=== PATIENT | female | born 1970 | race Caucasian/White ===

== ENCOUNTER → 2017-09-16 | Outpatient (CLI) | payer BC ==
--- NOTE | 2017-09-16 11:21 | MM ---
Reason for exam: additional evaluation requested from prior study. Last mammogram was performed 1 year and 7 months ago. History: Family history of breast cancer in maternal grandmother. Benign MG stereo VAD BX RT of the right breast, March 12, 2016. Benign excisional biopsy of the right breast, September 29, 1998. Cyst aspiration of the right breast. Took hormonal contraceptives for 5 years. Physical Findings: Nurse did not find any significant physical abnormalities on exam. MG 3D Diag Mammo W/Cad [facility] Bilateral CC and MLO view(s) were taken. Prior study comparison: February 20, 2016, right breast MG 3d diag mammo w/cad RT. June 27, 2015, bilateral MG 3d diag mammo w/cad [facility]. The breast tissue is heterogeneously dense. This may lower the sensitivity of mammography. Previous mammotome biopsy in the right breast. No significant new findings when compared with previous films. These results were verbally communicated with the patient and result sheet given to the patient on 09/16/17. ASSESSMENT: Negative, BI-RAD 1 RECOMMENDATION: Routine screening mammogram of both breasts in 1 year.
--- NOTE | 2017-09-16 12:16 | US ---
EXAMINATION TYPE: US pelvic complete DATE OF EXAM: 09/16/2017 COMPARISON: NONE CLINICAL HISTORY: 47-year-old female R10.2 pelvic pain. With hysterectomy 8 years ago TECHNIQUE: Transabdominal sonographic images of the pelvis were acquired. Date of LMP: 8 yrs ago Findings: Uterus: Surgically absent Right Ovary: 2.7 x 2.1 x 2.2 cm, within normal limits. Left Ovary: 2.5 x 2.6 x 2.2 cm, a couple prominent follicles are present measuring up to 1.8 cm. No evident adnexal abnormality or cul-de-sac free fluid. IMPRESSION: 1. Status post hysterectomy. 2. No pelvic free fluid. A couple small follicles in the left ovary measure up to 1.8 cm.
== END | disposition home or self-care (01) ==
LOC: RADMAMWWP 10:31
PROVIDERS: ATTEND Family Medicine
DX: R92.8 Other abnormal and inconclusive findings on diagnostic imaging of breast (principal); R10.2 Pelvic and perineal pain; R14.0 Abdominal distension (gaseous); Z90.710 Acquired absence of both cervix and uterus
CPT/HCPCS: 76856; 77062; 77066

== ENCOUNTER → 2018-10-10 | Outpatient (CLI) | payer BC ==
--- NOTE | 2018-10-13 13:27 | MM ---
Reason for exam: screening (asymptomatic). Last mammogram was performed 1 year and 1 month ago. History: Family history of breast cancer in maternal grandmother. Benign MG stereo VAD BX RT of the right breast, March 12, 2016. Benign excisional biopsy of the right breast, September 29, 1998. Cyst aspiration of the right breast. Took hormonal contraceptives for 5 years. Physical Findings: A clinical breast exam by your physician is recommended on an annual basis and results should be correlated with mammographic findings. MG 3D Screening Mammo W/Cad Bilateral CC and MLO view(s) were taken. Prior study comparison: September 16, 2017, bilateral MG 3d diag mammo w/cad [facility]. February 20, 2016, right breast MG 3d diag mammo w/cad RT. Previous mammotome biopsy in the right breast. No significant changes when compared with prior studies. ASSESSMENT: Benign, BI-RAD 2 RECOMMENDATION: Routine screening mammogram of both breasts in 1 year.
== END | disposition home or self-care (01) ==
LOC: RADMAMWWP 09:37
PROVIDERS: ATTEND Family Medicine
DX: Z12.31 Encounter for screening mammogram for malignant neoplasm of breast (principal)
CPT/HCPCS: 77063; 77067

== ENCOUNTER → 2020-02-10 | Outpatient (CLI) | payer BC ==
--- NOTE | 2020-02-11 11:24 | MM ---
Reason for exam: screening (asymptomatic). Last mammogram was performed 1 year and 4 months ago. History: Family history of breast cancer in maternal grandmother. Benign MG stereo VAD BX RT of the right breast, March 12, 2016. Benign excisional biopsy of the right breast, September 29, 1998. Cyst aspiration of the right breast. Took hormonal contraceptives for 5 years. Physical Findings: A clinical breast exam by your physician is recommended on an annual basis and results should be correlated with mammographic findings. MG 3D Screening Mammo W/Cad Bilateral CC and MLO view(s) were taken. Prior study comparison: October 10, 2018, bilateral MG 3d screening mammo w/cad. September 16, 2017, bilateral MG 3d diag mammo w/cad [facility]. The breast tissue is heterogeneously dense. This may lower the sensitivity of mammography. No significant changes when compared with prior studies. ASSESSMENT: Benign, BI-RAD 2 RECOMMENDATION: Routine screening mammogram of both breasts in 1 year.
== END | disposition home or self-care (01) ==
LOC: RADMAMWWP 11:05
PROVIDERS: ATTEND Family Medicine
DX: Z12.31 Encounter for screening mammogram for malignant neoplasm of breast (principal)
CPT/HCPCS: 77063; 77067

== ENCOUNTER → 2021-10-05 | Outpatient (CLI) | payer BC ==
--- NOTE | 2021-10-05 09:43 | US ---
EXAMINATION TYPE: US pelvis complete transvag DATE OF EXAM: 10/05/2021 COMPARISON: US 2018 CLINICAL HISTORY: R10.2 PELVIC PAIN,R14.0 BLOATING. Bloating, history of partial hysterectomy 12 year s ago TECHNIQUE: . Transvaginal exam only Date of LMP: 12 years ago EXAM MEASUREMENTS: Right Ovary: 2.3 x 1.0 x 1.6 cm Left Ovary: 2.6 x 1.6 x 1.9 cm 1. Uterus: surgically absent 2. Endometrium: surgically absent 3. Right Ovary: wnl 4. Left Ovary: 1.5cm cystic area 5. Bilateral Adnexa: wnl 6. Posterior cul-de-sac: wnl IMPRESSION: Postoperative pelvis. 1.5 cm cyst left ovary is nonspecific.
--- NOTE | 2021-10-06 09:09 | MM ---
Reason for Exam: Screening (asymptomatic). Last mammogram was performed 1 year(s) and 8 month(s) ago. Patient History: Menarche at age 14. First Full-Term at age 16. Hysterectomy at age 39. Postmenopausal. Patient used Hormonal Contraceptives for 5 years. Cyst Aspiration on the Right side. 03/12/2016, Benign Core Biopsy on the right side. 09/29/1998, Benign Excisional Biopsy on the right side. Maternal grandmother had breast cancer. Risk Values: Elida 5 year model risk: 1.0%. NCI Lifetime model risk: 8.5%. Prior Study Comparison: 09/16/2017 Bilateral Diagnostic Mammogram, [facility]. 10/10/2018 Bilateral Screening Mammogram, [facility]. 02/10/2020 Bilateral Screening Mammogram, [facility]. Tissue Density: The breast tissue is heterogeneously dense. This may lower the sensitivity of mammography. Findings: Analyzed By CAD. Mammotome biopsy clip right breast is redemonstrated. Well-defined small nodules towards the left axilla favor benign lymph nodes. There is no suspicious group of microcalcifications or new suspicious mass in either breast. Overall Assessment: Benign, BI-RAD 2 Management: Screening Mammogram of both breasts in 1 year. A clinical breast exam by your physician is recommended on an annual basis and results should be correlated with mammographic findings. Electronically signed and approved by: Herrera Carcamo M.D.
== END | disposition home or self-care (01) ==
LOC: RADUSWWP 08:46
PROVIDERS: ATTEND Family Medicine
DX: Z12.31 Encounter for screening mammogram for malignant neoplasm of breast (principal); N83.202 Unspecified ovarian cyst, left side
CPT/HCPCS: 76830; 77063; 77067

== ENCOUNTER → 2021-12-25 | Outpatient (CLI) | payer BC ==
--- NOTE | 2021-12-25 12:31 | FL ---
EXAMINATION TYPE: FL barium swallow DATE OF EXAM: 12/25/2021 CLINICAL INDICATION: 51-year-old female R1 3.10, dysphagia, food sticking in throat. COMPARISON: No priors available for comparison Total Fluoroscopy Time: 2 minutes 30 seconds 60 images obtained. FINDINGS: The swallowing mechanism is normal. There is mild anterior endplate cervical spondylosis contributing to mild focal impressions onto the back wall of the hypopharynx and cervical esophagus. However, thi s is not contributing obstruction. No significant cricopharyngeus muscle hypertrophy or diverticulum is seen. The thoracic portion has a normal course and caliber. There are mild blunted secondary stripping wave s and the patient is prone/supine. The mucosa is normal and no persistent filling defect is encountered. Note a tiny sliding hiatal hernia. We were unable to elicit any gastroesophageal reflux during the co urse of the exam with Valsalva or positional maneuvers IMPRESSION: 1. Mild anterior endplate spurring in the cervical spine causing mild impressions onto the back wall of the cervical esophagus. This does not contribute to any obstruction. 2. Very tiny sliding hiatal hernia. Unable to elicit any gastroesophageal reflux during the course of the exam. 3. Mild esophageal dysmotility with some blunted secondary stripping waves.
== END | disposition home or self-care (01) ==
LOC: RADUSWWP 10:54
PROVIDERS: ATTEND Surgery Plastic and Reconstructive Surgery
DX: K44.9 Diaphragmatic hernia without obstruction or gangrene (principal); K21.9 Gastro-esophageal reflux disease without esophagitis; K22.4 Dyskinesia of esophagus
CPT/HCPCS: 74220

== ENCOUNTER 2022-02-14 09:32 | Day surgery (SDC) | payer BC ==
[2022-02-09 12:27] VITALS: BMI 28.1
[~2022-02-14 09:32] MED LIST: LACTATED RINGERS 1,000 ML IV SCH; LIDOCAINE 1% (10MG/ML) FOR IV START INTRADERMA PRN
[2022-02-14] MEDS ORDERED: LACTATED RINGERS 1,000 ML IV ONE (09:53)
[2022-02-14 09:56] VITALS: TEMP 97.8
[2022-02-14] MEDS ORDERED: PROPOFOL 10 MG/ML 20 ML VIAL IV ONE (11:18)
[2022-02-14] MEDS ORDERED: LIDOCAINE 2% INJ 20 MG/ML (2 ML VIAL) ONE (11:18)
--- NOTE | 2022-02-14 11:34 | P.GSHP ---
History of Present Illness H&P Date: 02/14/22 CHIEF COMPLAINT: GERD HISTORY OF PRESENT ILLNESS: The patient is a 51-year-old female who presents reports gastroesophageal reflux disease. Upper endoscopy was offered for further evaluation and management. PAST MEDICAL HISTORY: Please see list. PAST SURGICAL HISTORY: Please see list. MEDICATIONS: Please see list. ALLERGIES: Please see list. SOCIAL HISTORY: No illicit drug use FAMILY HISTORY: No reports of Crohn disease or ulcerative colitis. REVIEW OF ORGAN SYSTEMS: CONSTITUTIONAL: No reports of fevers or chills. GI: Denies any blood in stools or constipation. PHYSICAL EXAM: VITAL SIGNS: Stable GENERAL: Well-developed and pleasant in no acute distress. HEENT: No scleral icterus. Extraocular movements grossly intact. Moist buccal mucosa. NECK: Supple without lymphadenopathy. CHEST: Unlabored respirations. Equal bilateral excursions. CARDIOVASCULAR: Regular rate and rhythm. Distal 2+ pulses. ABDOMEN: Soft, nondistended. MUSCULOSKELETAL: No clubbing, cyanosis, or edema. ASSESSMENT: 1. Gastroesophageal reflux disease PLAN: 1. Recommend proceeding with an upper endoscopy Past Medical History Past Medical History: GERD/Reflux Additional Past Medical History / Comment(s): FLUID RETENTION. FEELS LIKE FOOD IS NOT GOING DOWN. HIATAL HERNIA. SEASONAL ALLERGIES History of Any Multi-Drug Resistant Organisms: None Reported Past Surgical History: Breast Surgery, Cholecystectomy, Hysterectomy, Tonsillectomy, Tubal Ligation Additional Past Surgical History / Comment(s): RT BREAST LUMPECTOMY X 2 Past Anesthesia/Blood Transfusion Reactions: Motion Sickness, Postoperative Nausea & Vomiting (PONV) Smoking Status: Current every day smoker - Past Family History Mother Family Medical History: No Reported History Medications and Allergies Home Medications Medication Instructions Recorded Confirmed Type hydroCHLOROthiazide [Hydrodiuril] 25 mg PO DAILY 08/11/14 02/09/22 History Montelukast [Singulair] 10 mg PO DAILY 02/09/22 02/09/22 History Omeprazole 40 mg PO DAILY 02/09/22 02/09/22 History Allergies Allergy/AdvReac Type Severity Reaction Status Date / Time shellfish derived [Shellfish] Allergy ITCHING/HIV Verified 02/09/22 12:18 ES Surgical - Exam Vital Signs Temp Pulse Resp BP Pulse Ox 97.8 F 65 18 123/73 100 02/14/22 09:55 02/14/22 09:55 02/14/22 09:55 02/14/22 09:55 02/14/22 09:55
--- NOTE | 2022-02-14 11:39 | P.PCN ---
Date of Procedure: 02/14/22 Description of Procedure: PREOPERATIVE DIAGNOSIS: Gastroesophageal reflux disease. Dysphagia Diaphragmatic hiatal hernia POSTOPERATIVE DIAGNOSIS: Gastroesophageal reflux disease. Dysphagia OPERATION: Esophagogastroduodenoscopy with biopsies along antrum and duodenum SURGEON: Sepideh Ga MD ANESTHESIA: MAC. INDICATIONS: The patient is a 51-year-old female who presents with reflux disease. Benefits and risks of the procedure were described. Informed consent was obtained. DESCRIPTION: The patient was brought into the endoscopy suite and laid in the left lateral decubitus position. An Olympus gastroscope was passed along the posterior oropharynx down to the distal esophagus where the squamocolumnar junction was encountered at 38 cm from the incisors. The stomach was entered and no bile reflux was found. Additional findings are listed below. Biopsies with cold forceps were obtained of the antrum. The first through third portion of the duodenum was examined. Retroflexion of the scope confirmed Hill grade 2 lower esophageal valve. The squamocolumnar junction demonstrated LA grade B erosive esophagitis. The stomach was desufflated. The patient tolerated the procedure well. FINDINGS: Squamocolumnar junction 38 cm from the incisors. Diaphragmatic hiatus at 38 cm. Hill grade 2 lower esophageal valve. LA grade B erosive esophagitis. Biopsies of duodenum Chronic gastritis RECOMMENDATIONS: Upper endoscopy as needed. Plan - Discharge Summary Discharge Rx Participant: No New Discharge Prescriptions: Continue hydroCHLOROthiazide [Hydrodiuril] 25 mg PO DAILY Montelukast [Singulair] 10 mg PO DAILY Omeprazole 40 mg PO DAILY Discharge Medication List hydroCHLOROthiazide [Hydrodiuril] 25 mg PO DAILY 08/11/14 [History] Montelukast [Singulair] 10 mg PO DAILY 02/09/22 [History] Omeprazole 40 mg PO DAILY 02/09/22 [History] Follow up Appointment(s)/Referral(s): Sepideh Ga MD [STAFF PHYSICIAN] - 02/27/22 Patient Instructions/Handouts: Upper Endoscopy (DC) Discharge Disposition: HOME SELF-CARE
[2022-02-14 11:43] VITALS: RESP 16
[2022-02-14 11:52] VITALS: BP 118/76; PULSE 67
== END 2022-02-14 12:45 | disposition home or self-care (01) ==
LOC: ORWHC2ENDO 09:32
PROVIDERS: ATTEND Surgery Plastic and Reconstructive Surgery
DX: K21.00 Gastro-esophageal reflux disease with esophagitis, without bleeding (principal); K29.50 Unspecified chronic gastritis without bleeding; K44.9 Diaphragmatic hernia without obstruction or gangrene; F17.200 Nicotine dependence, unspecified, uncomplicated; Z90.49 Acquired absence of other specified parts of digestive tract; Z90.410 Acquired total absence of pancreas; Z90.89 Acquired absence of other organs; Z98.51 Tubal ligation status; Z79.899 Other long term (current) drug therapy; Z91.013 Allergy to seafood
CPT/HCPCS: 88305; 43239; J2704; J2001

== ENCOUNTER → 2023-01-29 | Outpatient (CLI) | payer BC ==
--- NOTE | 2023-01-30 07:33 | MM ---
Reason for Exam: Screening (asymptomatic). Last mammogram was performed 1 year(s) and 3 month(s) ago. Patient History: Menarche at age 14. First Full-Term at age 16. Hysterectomy at age 39. Postmenopausal. Patient used Hormonal Contraceptives for 5 years. Cyst Aspiration on the Right side. 03/12/2016, Benign Core Biopsy on the right side. 09/29/1998, Benign Excisional Biopsy on the right side. Maternal grandmother had breast cancer. Risk Values: Elida 5 year model risk: 1.1%. NCI Lifetime model risk: 8.4%. Prior Study Comparison: 10/10/2018 Bilateral Screening Mammogram, [facility]. 02/10/2020 Bilateral Screening Mammogram, [facility]. 10/05/2021 Bilateral MG 3D screening mammo w/cad, [facility]. Tissue Density: The breast tissue is heterogeneously dense. This may lower the sensitivity of mammography. Findings: Analyzed By CAD. There is no suspicious group of microcalcifications or new suspicious mass in either breast. Biopsy clip within the right breast. Chronic nodularity within the left breast. Stable benign calcifications. Overall Assessment: Benign, BI-RAD 2 Management: Screening Mammogram of both breasts in 1 year. A clinical breast exam by your physician is recommended on an annual basis and results should be correlated with mammographic findings. Note on Elida scores and lifetime risk: 1. A Elida score greater than 3% is considered moderate risk. If this is the case, consider specialist referral to assess eligibility for a risk reducing agent. If overall lifetime risk for the development of breast cancer is 20% or higher, the patient may qualify for future screening with alternating mammogram and breast MRI. Electronically signed and approved by: Mann Tee D.O.
== END | disposition home or self-care (01) ==
LOC: RADMAMWWP 07:56
PROVIDERS: ATTEND Family Medicine
DX: Z12.31 Encounter for screening mammogram for malignant neoplasm of breast (principal); Z78.0 Asymptomatic menopausal state; Z80.3 Family history of malignant neoplasm of breast
CPT/HCPCS: 77063; 77067

== ENCOUNTER → 2023-12-04 | Outpatient (CLI) | payer BC ==
--- NOTE | 2023-12-04 11:39 | MM ---
Reason for Exam: Clinical finding. Last screening mammogram was performed 11 month(s) ago. Indicated Problems: Lump or thickening of the left side for 1 Year(s). Patient History: Menarche at age 14. First Full-Term at age 16. Hysterectomy at age 39. Postmenopausal. Patient used Hormonal Contraceptives for 5 years. Cyst Aspiration on the Right side. 03/12/2016, Benign Core Biopsy on the right side. 09/29/1998, Benign Excisional Biopsy on the right side. Maternal grandmother had breast cancer. Mother had breast cancer, age 73. Risk Values: Elida 5 year model risk: 2.9%. NCI Lifetime model risk: 19.9%. Tissue Density: The breasts are heterogeneously dense, which may obscure small masses. Findings: Analyzed By CAD. Right breast biopsy clip. No finding to correlate with palpable abnormality. Overall Assessment: Incomplete: need additional imaging evaluation, BI-RAD 0 Management: Diagnostic Breast Ultrasound of the left breast. Results were given to the patient verbally at the time of exam. Patient should continue monthly self-breast exams. A clinical breast exam by your physician is recommended on an annual basis. This exam should not preclude additional follow-up of suspicious palpable abnormalities. Note on Elida scores and lifetime risk: 1. A Elida score greater than 3% is considered moderate risk. If this is the case, consider specialist referral to assess eligibility for a risk reducing agent. 2. If overall lifetime risk for the development of breast cancer is 20% or higher, the patient may qualify for future screening with alternating mammogram and breast MRI. Electronically signed and approved by: Stan Mendez DO
--- NOTE | 2023-12-04 12:15 | USB ---
Reason for Exam: Clinical finding. Patient History: Menarche at age 14. First Full-Term at age 16. Hysterectomy at age 39. Postmenopausal. Patient used Hormonal Contraceptives for 5 years. Cyst Aspiration on the Right side. 03/12/2016, Benign Core Biopsy on the right side. 09/29/1998, Benign Excisional Biopsy on the right side. Maternal grandmother had breast cancer. Mother had breast cancer, age 73. Risk Values: Elida 5 year model risk: 2.9%. NCI Lifetime model risk: 19.9%. Technique: Method: Targeted. Doppler: Color. Patient Position: Supine. Prior Study Comparison: 02/10/2020 Bilateral Screening Mammogram, [facility]. 10/05/2021 Bilateral MG 3D screening mammo w/cad, [facility]. 01/29/2023 Bilateral MG 3D screening mammo w/cad, [facility]. Findings: The area of palpable concern of the left breast, the axilla of the left breast and the retroareolar of the left breast were scanned. Technique utilized:US breast limited LT Image; Ultrasound imaging of: Area of concern, retroareolar region and axilla. No evidence for organizing fluid collection or mass. Hyperechoic lesions within the area of concern at 11:00 a red 11 cm from nipple measuring 17 x 9 m and another measuring 6 mm . Findings represent lipomas. Short-term follow-up recommended. Overall Assessment: Probably benign, BI-RAD 3 Management: Diagnostic Breast Ultrasound of the left breast in 3 months. A clinical breast exam by your physician is recommended on an annual basis and results should be correlated with mammographic findings. This exam should not preclude additional follow-up of suspicious palpable abnormalities. Results were given to the patient verbally at the time of exam. Electronically signed and approved by: Stan Mendez DO
== END | disposition home or self-care (01) ==
LOC: RADMAMWWP 10:49
PROVIDERS: ATTEND Obstetrics & Gynecology
DX: N63.20 Unspecified lump in the left breast, unspecified quadrant (principal); Z78.0 Asymptomatic menopausal state; Z80.3 Family history of malignant neoplasm of breast; R92.333 Mammographic heterogeneous density, bilateral breasts
CPT/HCPCS: 77062; 77066

== ENCOUNTER → 2024-04-13 | Outpatient (CLI) | payer BC ==
--- NOTE | 2024-04-13 11:00 | USB ---
Reason for Exam: Follow-up at short interval from prior study. Patient History: Menarche at age 14. First Full-Term at age 16. Hysterectomy at age 39. Postmenopausal. Patient used Hormonal Contraceptives for 5 years. Cyst Aspiration on the Right side. 03/12/2016, Benign Core Biopsy on the right side. 09/29/1998, Benign Excisional Biopsy on the right side. Maternal grandmother had breast cancer. Mother had breast cancer, age 73. Risk Values: Elida 5 year model risk: 2.9%. NCI Lifetime model risk: 19.9%. Technique: Method: Targeted. Prior Study Comparison: 10/05/2021 Bilateral MG 3D screening mammo w/cad, [facility]. 01/29/2023 Bilateral MG 3D screening mammo w/cad, [facility]. 12/04/2023 Bilateral MG 3D diag mammo w/cad [facility], [facility]. Findings: The area of palpable concern of the left breast was scanned. Overall Assessment: Negative, BI-RAD 1 Management: Screening Mammogram of both breasts in 8 months. Electronically signed and approved by: Herrera Carcamo M.D.
--- NOTE | 2024-04-13 12:16 | BD ---
EXAMINATION TYPE: Axial Bone Density DATE OF EXAM: 04/13/2024 CLINICAL HISTORY: 53 years old Female. ICD-10 CODE: N95.1 MELINDA AND FEM CLI MAC STATES , Additional H istory: Height: 62.25 Weight: 157 FRAX RISK QUESTIONS: Family History (Parent hip fracture): no History of Fracture in Adulthood: no Secondary Osteoporosis: no Rheumatoid Arthritis: no Current Tobacco Use: no RISK FACTORS HISTORY OF: Surgery to Spine/Hip(right/left)/Wrist (right/left): no MEDICATIONS: Thyroid Medications: no Osteoporosis Medications: no EXAM MEASUREMENTS: Bone mineral densitometry was performed using the [employer] System. Bone mineral density as measured about the Lumbar spine is: ----- L1-L4(G/cm2): 1.129 T Score Values are as follows: ----- L1: -0.4 ----- L2: -0.4 ----- L3: -0.1 ----- L4: -0.8 ----- L1-L4: -0.4 Z Score Values are as follows: ----- L1: 0.1 ----- L2: 0.1 ----- L3: 0.5 ----- L4: -0.3 ----- L1-L4: 0.1 Bone mineral density baseline Bone mineral density about the R hip (g/cm2): 0.961 Bone mineral density about the L hip (g/cm2): 1.008 T Score values are as follows: -----R Neck: -1.2 -----L Neck: -1.0 -----R Total: -0.4 -----L Total: 0.0 Z Score values are as follows: -----R Neck: -0.4 -----L Neck: -0.1 -----R Total: 0.1 -----L Total: 0.5 Bone mineral density baseline FRAX%s: The graph provided illustrates a 5.9% chance for a major osteoporotic fx and a 0.4% chance fo r the hips probability for fx in 10 years time. IMPRESSION: Osteopenia (T Score between -2.5 and -1). There is slightly increased risk of fracture and the patient may be considered for treatment. Re-Screen 2-5 years. NOTE: T-SCORE=SD OF THE YOUNG ADULT MEAN. [facility], , 04/13/2024 12:14 PM
== END | disposition home or self-care (01) ==
LOC: RADUSWWP 10:28
PROVIDERS: ATTEND Obstetrics & Gynecology
DX: N95.1 Menopausal and female climacteric states (principal); N63.20 Unspecified lump in the left breast, unspecified quadrant; Z80.3 Family history of malignant neoplasm of breast; M85.89 Other specified disorders of bone density and structure, multiple sites
CPT/HCPCS: 77080